=== PATIENT | male | born 1965 | race Caucasian/White ===

== ENCOUNTER → 2018-11-26 10:28 | Outpatient (CLI) | payer OTHER, SELFPAY ==
--- NOTE | 2018-11-26 | DI.RAD.S_ITS ---
PROCEDURE: XR CHEST 2V INDICATIONS: chest pain, cough TECHNIQUE: 2 views of the chest were acquired. COMPARISON: None. FINDINGS: Surgical changes and devices: None. Lungs and pleura: Lungs are clear. No pleural effusions or pneumothorax. Mediastinum: Mediastinal contours are normal. Heart size is normal. Bones and chest wall: No suspicious bony abnormalities. Soft tissues appear unremarkable. IMPRESSION: No acute cardiopulmonary pathology. Dictated by: Nico Yeung M.D. on 11/26/2018 at 11:49 Approved by: Nico Yeung M.D. on 11/26/2018 at 11:49
== END ==
PROVIDERS: Family Provider Nurse Practitioner Family; Visit Provider Family Medicine
DX: R07.9 Chest pain, unspecified (principal); R05 Cough
CPT/HCPCS: 71046

== ENCOUNTER → 2020-03-30 08:57 | Outpatient (CLI) | payer OTHER, SELFPAY ==
--- NOTE | 2020-03-30 | DI.MRI.S_ITS ---
PROCEDURE: MR LUMBAR SPINE WO CON INDICATIONS: Magnetic Resonance Imaging TECHNIQUE: Noncontrast sagittal T1 spin echo and T2 fast echo, sagittal STIR, axial T1 and T2 fast spin echo through the lumbar spine. In cases with scoliosis, additional coronal T2 fast spin echo may be performed. COMPARISON: [facility], MR, L-SPINE WITHOUT CONTRAST, 05/05/2006, 9:39. FINDINGS: Image quality: Excellent. Alignment and Curvature: There is normal bony alignment. Bone Marrow: Small benign intraosseous hemangioma noted in the L5 vertebral body. Minimal reactive endplate changes noted adjacent to the L5-S1 disc.. No acute vertebral body compression fractures. Spinal Cord: Tethered spinal cord is noted without visualization of the termination of the conus medullaris. Spinal cord terminates below the S1 level. Visualized cord demonstrates normal signal and size. Paraspinous Soft Tissues: No paravertebral masses. T12-L1: Normal appearance. L1-L2: Slight loss of disc signal. Minimal, diffuse disc bulge. No central stenosis. Mild bilateral neural foraminal narrowing. No neural compression. L2-L3: Loss of disc signal. Mild, diffuse disc bulge. Mild narrowing of the central canal. Mild bilateral neural foraminal narrowing. No neural compression. L3-L4: Loss of disc signal. Mild, diffuse disc bulge. Mild narrowing of the central canal. Mild bilateral neural foraminal narrowing. No neural compression. L4-L5: Loss of disc signal. Mild, diffuse disc bulge. Mild bilateral facet hypertrophy. Mild narrowing of the central canal. Mild to moderate bilateral neural foraminal narrowing. No neural compression. Fissure noted in the posterior annulus. L5-S1: Loss of disc signal. Mild, diffuse disc bulge. No central stenosis. Mild bilateral neural foraminal narrowing. No neural compression. IMPRESSION: 1. 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 Recommend neurosurgical consultation and dedicated sacral MRI with and without contrast for further evaluation. 2. Multilevel degenerative disc disease. 3. L4-L5 facet arthropathy. 4. No significant central canal narrowing. 5. No significant neural foraminal narrowing. 6. No neural compression. 7. L4-L5 disc annulus fissure. Dictated by: Geraldine Cooper MD, PhD on 03/30/2020 at 10:37 Approved by: Geraldine Cooper MD, PhD on 03/30/2020 at 10:44
== END ==
PROVIDERS: Family Provider Nurse Practitioner Family; PCP Family Medicine; Referring Provider Family Medicine; Visit Provider Family Medicine
DX: M54.5 Low back pain (principal); Q06.8 Other specified congenital malformations of spinal cord; M51.36 Other intervertebral disc degeneration, lumbar region; M51.37 Other intervertebral disc degeneration, lumbosacral region; M47.816 Spondylosis without myelopathy or radiculopathy, lumbar region
CPT/HCPCS: 72148

== ENCOUNTER → 2020-04-19 12:47 | Outpatient (CLI) | payer OTHER, SELFPAY ==
--- NOTE | 2020-04-19 | DI.RAD.S_ITS ---
PROCEDURE: XR CHEST 2V INDICATIONS: Chronic chest pain, unspecified TECHNIQUE: 2 views of the chest were acquired. COMPARISON: [facility], CR, XR CHEST 2V, 11/26/2018, 10:31. FINDINGS: Surgical changes and devices: None. Lungs and pleura: Lungs are clear. No pleural effusions or pneumothorax. Mediastinum: Mediastinal contours are normal. Heart size is normal. Bones and chest wall: No suspicious bony abnormalities. Soft tissues appear unremarkable. IMPRESSION: Normal for age, source of current chest pain symptoms is not seen. Dictated by: Velasquez Dewey M.D. on 04/19/2020 at 13:26 Approved by: Velasquez Dewey M.D. on 04/19/2020 at 13:26
== END ==
PROVIDERS: Family Provider Nurse Practitioner Family; PCP Family Medicine; Referring Provider Family Medicine; Visit Provider Family Medicine
DX: R07.9 Chest pain, unspecified (principal); G89.29 Other chronic pain
CPT/HCPCS: 71046

== ENCOUNTER 2020-04-28 10:41 | Emergency (ER) | payer OTHER, SELFPAY ==
[2020-04-28] VITALS (8 sets, daily range): BP systolic 150–199; BP diastolic 84–97; PULSE 55–72; RESP 13–29; TEMP 36.9; O2SAT 97–99
--- NOTE | 2020-04-28 10:56 | DI.RAD.S_ITS ---
PROCEDURE: XR CHEST 1V INDICATIONS: chest pain TECHNIQUE: One view of the chest was acquired. COMPARISON: [facility], CR, XR CHEST 2V, 11/26/2018, 10:31. [facility], CR, XR CHEST 2V, 04/19/2020, 12:49. FINDINGS: Surgical changes and devices: None. Lungs and pleura: Lungs are clear. No pleural effusions or pneumothorax. Mediastinum: Mediastinal contours appear normal. Heart size is normal. Bones and chest wall: No suspicious bony lesions. Overlying soft tissues appear unremarkable. IMPRESSION: Portable chest within normal limits. Dictated by: Dayne Gresham M.D. on 04/28/2020 at 10:21 Approved by: Dayne Gresham M.D. on 04/28/2020 at 10:22
[2020-04-28 11:39] LABS: Add Manual Diff / Slide Review NO; Basophils Absolute Auto 0 /uL (0-100); Basophils Percent Auto 0.3 % (0-2); Eosinophils Absolute Auto 0 /uL (0-450); Eosinophils Percent Auto 0.8 % (2-4); Hematocrit 43.9 % (41-53); Hemoglobin 15.1 g/dL (13.5-17.5); Lymphocytes Absolute Auto 1600 /uL (1100-4500); Lymphocytes Percent Auto 32.1 % (25-40); Mean Corpuscular HGB Conc 34.4 % (30-36); Mean Corpuscular Hemoglobin 30.5 PG (26-34); Mean Corpuscular Volume 88.7 fL (80-100); Monocytes Absolute Auto 500 /uL (0-900); Monocytes Percent Auto 9.9 % (3-14); Neutrophils Absolute Auto 2800 /uL (1500-7000); Neutrophils Percent Auto 56.9 % (50-75); Platelet Count 172 X10^3/uL (150-400); Red Blood Cell Count 4.95 X10^6/uL (4.5-5.9); Red Cell Distribution Width 13.1 % (11.6-14.8); White Blood Cell Count 4.9 X10^3/uL (4.5-11.0)
--- NOTE | 2020-04-28 11:39 | ED.CHESTPAIN ---
HPI - Chest Pain <ANTONIO Nascimento - Last Filed: 04/28/20 14:15> General Chief Complaint: Chest Pain Stated Complaint: chronic chest pain, worsening over past few months Time Seen by Provider: 04/28/20 11:02 Source: patient Mode of arrival: Ambulatory Limitations: no limitations History of Present Illness HPI narrative: This is a 54-year-old male, former smoker, who has past medical history significant for hypertension present to ED from [facility] with chronic left chest pain that has become more frequent and reports fatigue and less exercise intolerance for last 3 months. Patient reports initially noticed left-sided striking chest pain in 2018 with a new onset of HTN. Patient is a good historian and brought his past medical records with him and notes. He had started on anti hypertensive medication then developed side effect of post nasal drips and had changed the medication a few times. Since then patient has been having intermittent left-sided chest tightness and something/heaviness even at rest. He describes as mare horse that can't be stretched out. It has been progressively worse and most of the times he feels during dinner and through out the night. He rates pain as 3/10. When he wakes up in the morning and as day progresses, pain improves. Patient denies cough, wheezing, acid reflux. He denies associated symptoms as short of breath, dizziness. Patient reports he used to use elliptical machine for about 15 minutes a day and now he noticed after 10 minutes becomes tired. Patient denies increasing pain associated with increased activities. Patient had a stress test and echocardiogram done about 2 years ago at [facility] which was all normal. Patient states Dr. Cleary, PCP, found lipoma in the left side back and is waiting to schedule an US test and concerns if this is causing the pain. He didn't want to put off the pain longer and finds something more serious so he is here today. He has been using Aleve as his PCP recommended but no changes in pain. He denies pain changes with changing and in position. Patient denies abdominal or back pain. Patient denies rashes, calf pain, leg swelling. Related Data Home Medications Medication Instructions Recorded Confirmed losartan 25 - 50 mg PO DAILY 04/28/20 04/28/20 valacyclovir 500 mg PO BID 04/28/20 04/28/20 Allergies Allergy/AdvReac Type Severity Reaction Status Date / Time hornet venom Allergy Severe Anaphylaxis Verified 04/28/20 13:51 morphine AdvReac Intermediate Muscle Pain Verified 04/28/20 12:08 Review of Systems <ANTONIO Nascimento - Last Filed: 04/28/20 14:15> Review of Systems Narrative: General: Denies fever, chills, fatigue, malaise, sweats. HEENT: Denies sinus pain, ear pain, sore throat, difficulty swallowing, dizziness. Respiratory: Denies dyspnea, cough, wheezing, hemoptysis, sputum. Cardiovascular: See HPI Gastrointestinal: Denies nausea, vomiting, abdominal pain, diarrhea, constipation, melena. : Denies dysuria, frequency, incontinence, hematuria, urinary retention. Musculoskeletal: Denies weakness, joint pain or bony pain. Skin: Denies rash, skin lesions, or other. Neurologic: Denies weakness, headache, numbness, change in speech, confusion, seizures, incoordination. Psychiatric: No concerning psychosocial issues. 12-point review of systems is negative except for those stated above. Patient History <ANTONIO Nascimento - Last Filed: 04/28/20 14:15> Medical History History of tethered spinal cord Hypertension Social History Smoking Status: Former smoker Smoking Status: Former smoker alcohol intake frequency: 0-2 drinks per day Substance Use Type: does not use Exam <ANTONIO Nascimento - Last Filed: 04/28/20 14:15> Narrative Exam Narrative: GEN: Alert, oriented x 3, well appearing and nourished, and in no acute distress. Head: Normal cephalic, atraumatic. No scalp or temporal tenderness, palpable mass or rash. EYES: Pupils are equal, round, and reactive to light and accommodation. Extraocular muscles are intact bilaterally. There is no subconjunctival hemorrhage, exudate and sclera non-icteric. ENT: Hearing grossly intact. Airway patent. Neck: Trachea in midline. No JVD, non-tender without lymphadenopathy. No masses or thyroid megaly. Supple, non-tender and no meningeal signs. CARDIAC: Normal regular rate and rhythm without murmurs, gallops, or rubs. No chest wall tenderness. No peripheral edema, cyanosis or pallor. Capillary refill is less than 2 seconds. RESPIRATORY: Lungs are clear to auscultate bilaterally. No cough, wheezes, rales, or rhonchi. No stridor, respiratory distress, increase work of breathing, or accessary muscle used. ABD: Abdomen soft, nontender and non-distended. No guarding or rebound tenderness to palpate. Bowel sounds are normal in all 4 quadrants. There is no palpable masses or organomegaly. EXT: Full painless ROM of all extremities with no loss of sensation, strength, effusion or edema. SKIN: Warm, dry, normal color for patient. No erythema, lesions or rash over visible areas. BACK: Nontender without deformity or crepitance. No flank tenderness. NEUROLOGICAL: Alert and oriented to place, time and person. Sensation and motor function intact bilaterally. No facial droops, dysphasia. PSYCHIATRIC: Good judgement and reason, without hallucinations, abnormal affect or abnormal behaviors during the examination. Patient is not suicidal. Initial Vital Signs Initial Vital Signs: Vital Signs Temperature 98.5 F 04/28/20 10:45 Pulse Rate 72 04/28/20 10:45 Respiratory Rate 16 04/28/20 10:45 Blood Pressure 199/95 H 04/28/20 10:45 Pulse Oximetry 99 04/28/20 10:45 <Ventura Beltran DO - Last Filed: 04/28/20 14:16> Initial Vital Signs Initial Vital Signs: Vital Signs Temperature 98.5 F 04/28/20 10:45 Pulse Rate 72 04/28/20 10:45 Respiratory Rate 16 04/28/20 10:45 Blood Pressure 199/95 H 04/28/20 10:45 Pulse Oximetry 99 04/28/20 10:45 Scores <Jim ANTONIO Munoz - Last Filed: 04/28/20 14:15> GCS Samia coma scale eye opening: Spontaneous North coma scale verbal response: Orientated North coma scale motor response: Obey commands North coma scale total score: 15 HEART Score Heart Score history: Slightly Suspicious Heart Score EKG: Normal Heart Score Age: 45-64 years old Heart Score risk factors: 1-2 risk factors Heart Score troponin: < or = to normal limit Heart Score Total: 2 Course <[facility] - Last Filed: 04/28/20 14:15> Orders Ordered: ED Orders 04/28/20 10:56 XR chest 1V Stat EKG-12 Lead Stat 04/28/20 11:15 C-Reactive Protein Quant Stat Complete Blood Count AUTO DIFF Stat Comprehensive Metabolic Panel Stat Erythrocyte Sedimentation Rate Stat Lipase Stat Magnesium Stat Partial Thromboplastin Time Stat Prothrombin Time INR Stat Troponin & CK Cardiac Panel Stat 04/28/20 11:17 NT-proBNP (BNP-Adult 18+) Stat Discontinued Medications Ketorolac Tromethamine (Ketorolac 60 Mg/2 Ml Vial) 15 mg IV NOW ONE Stop: 04/28/20 12:04 Last Admin: 04/28/20 12:13 Dose: 15 mg Documented by: IRA Vital Signs Vital signs: Vital Signs - 8 hr 04/28/20 10:45 04/28/20 11:00 04/28/20 11:30 Temperature 98.5 F Pulse Rate 72 71 63 Respiratory Rate 16 29 H 13 Blood Pressure 199/95 H Pulse Oximetry 99 97 98 04/28/20 12:00 04/28/20 12:20 04/28/20 12:30 Temperature Pulse Rate 64 61 58 L Respiratory Rate 22 24 15 Blood Pressure 169/97 H 150/84 H Pulse Oximetry 98 98 98 04/28/20 13:00 04/28/20 13:30 Temperature Pulse Rate 55 L 55 L Respiratory Rate 13 16 Blood Pressure 160/87 H 150/84 H Pulse Oximetry 98 99 <Ventura Beltran DO - Last Filed: 04/28/20 14:16> Orders Ordered: ED Orders 04/28/20 10:56 XR chest 1V Stat EKG-12 Lead Stat 04/28/20 11:15 C-Reactive Protein Quant Stat Complete Blood Count AUTO DIFF Stat Comprehensive Metabolic Panel Stat Erythrocyte Sedimentation Rate Stat Lipase Stat Magnesium Stat Partial Thromboplastin Time Stat Prothrombin Time INR Stat Troponin & CK Cardiac Panel Stat 04/28/20 11:17 NT-proBNP (BNP-Adult 18+) Stat Discontinued Medications Ketorolac Tromethamine (Ketorolac 60 Mg/2 Ml Vial) 15 mg IV NOW ONE Stop: 04/28/20 12:04 Last Admin: 04/28/20 12:13 Dose: 15 mg Documented by: IRA Vital Signs Vital signs: Vital Signs - 8 hr 04/28/20 10:45 04/28/20 11:00 04/28/20 11:30 Temperature 98.5 F Pulse Rate 72 71 63 Respiratory Rate 16 29 H 13 Blood Pressure 199/95 H Pulse Oximetry 99 97 98 04/28/20 12:00 04/28/20 12:20 04/28/20 12:30 Temperature Pulse Rate 64 61 58 L Respiratory Rate 22 24 15 Blood Pressure 169/97 H 150/84 H Pulse Oximetry 98 98 98 04/28/20 13:00 04/28/20 13:30 Temperature Pulse Rate 55 L 55 L Respiratory Rate 13 16 Blood Pressure 160/87 H 150/84 H Pulse Oximetry 98 99 MDM - Chest Pain <Jim ANTONIO Munoz - Last Filed: 04/28/20 14:15> Differential Diagnosis Differential diagnosis: Likely unstable angina pectoris, atypical chest pain, st elevation myocardial infarction, costochondritis and other (Atypical chest pain, GERD) Medical Records Data Attestation: I reviewed the patient's medical records. Lab Data Attestation: I reviewed the patient's lab results. Result diagrams: 04/28/20 11:15 04/28/20 11:15 Labs: Lab Results 04/28/20 04/28/20 04/28/20 Range/Units 11:15 11:15 11:15 WBC 4.9 (4.5-11.0) X10^3/uL RBC 4.95 (4.5-5.9) X10^6/uL Hgb 15.1 (13.5-17.5) g/dL Hct 43.9 (41-53) % MCV 88.7 (80-100) fL MCH 30.5 (26-34) PG MCHC 34.4 (30-36) % RDW 13.1 (11.6-14.8) % Plt Count 172 (150-400) X10^3/uL Neut % (Auto) 56.9 (50-75) % Lymph % (Auto) 32.1 (25-40) % Wilcox % (Auto) 9.9 (3-14) % Eos % (Auto) 0.8 L (2-4) % Baso % (Auto) 0.3 (0-2) % Neut # (Auto) 2800 (2529-5756) /uL Lymph # (Auto) 1600 (2553-9403) /uL Wilcox # (Auto) 500 (0-900) /uL Eos # (Auto) 0 (0-450) /uL Baso # (Auto) 0 (0-100) /uL ESR 3 (0-15) MM/HR PT 11.7 (10.1-12.7) SECONDS INR 1.0 (0.9-1.3) APTT 33 (26.4-36.2) SECONDS Sodium 139 (137-145) mmol/L Potassium 4.1 (3.4-5.1) mmol/L Chloride 105 (98-107) mmol/L Carbon Dioxide 25 (22-32) mmol/L BUN 20 (9-20) mg/dL Creatinine 0.78 (0.66-1.25) mg/dL Estimated GFR > 60.0 (>60) mL/min BUN/Creatinine Ratio 25.6 H (6-22) Glucose 112 H (70-100) mg/dL Calcium 9.3 (8.4-10.2) mg/dL Magnesium 1.9 (1.6-2.3) mg/dL Total Bilirubin 0.4 (0.2-1.3) mg/dL AST 38 (17-59) IU/L ALT 30 (<50) IU/L Alkaline Phosphatase 55 (38-126) U/L Total Creatine Kinase 113 (55-170) U/L CK-MB (CK-2) 3.41 H (<2.37) ng/mL CK-MB (CK-2) Rel Index 3.0 (1.5-5.0) % Troponin I < 0.012 (0.01-0.034) ng/mL C-Reactive Protein < 0.5 (<1.0) mg/dL NT-Pro-B Natriuret Pep (<125) pg/mL Total Protein 7.5 (6.3-8.2) g/dL Albumin 4.3 (3.5-5.0) g/dL Globulin 3.2 (1.7-4.1) g/dL Albumin/Globulin Ratio 1.3 (1.0-2.8) Lipase 79 (23-300) U/L // Range/Units 11:17 WBC (4.5-11.0) X10^3/uL RBC (4.5-5.9) X10^6/uL Hgb (13.5-17.5) g/dL Hct (41-53) % MCV (80-100) fL MCH (26-34) PG MCHC (30-36) % RDW (11.6-14.8) % Plt Count (150-400) X10^3/uL Neut % (Auto) (50-75) % Lymph % (Auto) (25-40) % Wilcox % (Auto) (3-14) % Eos % (Auto) (2-4) % Baso % (Auto) (0-2) % Neut # (Auto) (2970-7387) /uL Lymph # (Auto) (2495-2946) /uL Wilcox # (Auto) (0-900) /uL Eos # (Auto) (0-450) /uL Baso # (Auto) (0-100) /uL ESR (0-15) MM/HR PT (10.1-12.7) SECONDS INR (0.9-1.3) APTT (26.4-36.2) SECONDS Sodium (137-145) mmol/L Potassium (3.4-5.1) mmol/L Chloride (98-107) mmol/L Carbon Dioxide (22-32) mmol/L BUN (9-20) mg/dL Creatinine (0.66-1.25) mg/dL Estimated GFR (>60) mL/min BUN/Creatinine Ratio (6-22) Glucose (70-100) mg/dL Calcium (8.4-10.2) mg/dL Magnesium (1.6-2.3) mg/dL Total Bilirubin (0.2-1.3) mg/dL AST (17-59) IU/L ALT (<50) IU/L Alkaline Phosphatase (38-126) U/L Total Creatine Kinase (55-170) U/L CK-MB (CK-2) (<2.37) ng/mL CK-MB (CK-2) Rel Index (1.5-5.0) % Troponin I (0.01-0.034) ng/mL C-Reactive Protein (<1.0) mg/dL NT-Pro-B Natriuret Pep 55 (<125) pg/mL Total Protein (6.3-8.2) g/dL Albumin (3.5-5.0) g/dL Globulin (1.7-4.1) g/dL Albumin/Globulin Ratio (1.0-2.8) Lipase (23-300) U/L Imaging Data Chest x-ray: Radiologist's Impression: [facility] [place] [id number] ReportSigned Patient: Lucio Arora R#: [id number]: 1965Acct:[id number]/Sex: 54 / MDate of Service: 04/28/20Loc: EDAccession Number: [id number] Procedure: XR chest 1V Ordering Provider: Ventura Beltran D.O. PROCEDURE: XR CHEST 1V INDICATIONS: chest pain TECHNIQUE: One view of the chest was acquired. COMPARISON: [facility], CR, XR CHEST 2V, 11/26/2018, 10:31. [facility], CR, XR CHEST 2V, 04/19/2020, 12:49. FINDINGS: Surgical changes and devices: None. Lungs and pleura: Lungs are clear. No pleural effusions or pneumothorax. Mediastinum: Mediastinal contours appear normal. Heart size is normal. Bones and chest wall: No suspicious bony lesions. Overlying soft tissues appear unremarkable. IMPRESSION: Portable chest within normal limits. Dictated by: Dayne Gresham M.D. on 04/28/2020 at 10:21 Approved by: Dayne Gresham M.D. on 04/28/2020 at 10:22 ECG Data Attestation: I personally reviewed and interpreted this ECG as follows: Prior ECG tracings: not available for review Interpretation: Normal sinus rhythm rate at 67. Normal [place]. [place] interval 170, QRS duration 84, QT/QTC 380/401. No acute ST changes MDM Narrative Medical decision making narrative: This is a 54-year-old male who presents to ED with chief complain of left-sided chest tightness, aches, pressure without other associated symptoms or aggravating or relieving factors since 2018. Patient had Cardiac workup including stress test and echocardiogram 2 years ago which were normal. Patient is here today for an evaluation since the pain is more frequent and experiences some fatigue last 3 months. EKG is normal sinus rhythm. Chest xray was negative for acute findings. Cardiac enzymes were negative for troponin. CK-MB was slightly elevated but CK-MB index was normal. Unremarkable chemistry test but mildly elevated BUN/Cr ration of 25.6 and glucose of 112. Normal lipase. Pro BNP was 55. Inflammatory marker was also checked to rule out pericarditis, endocarditis, myocarditis which were all normal was CRP of last than 0.5 with ESR of 3. Patient was medicated with IV Toradol without much changes. It is unclear the etiology of patient's chest pain. All questions were answered to the best of my knowledge and patient advised to follow with primary care physician and possible further cardiac workup. Return precautions discussed with the patient and he verbalized understanding and agreement with treatment plan. <Ventura Beltran, - Last Filed: 04/28/20 14:16> Lab Data Labs: Lab Results 04/28/20 04/28/20 04/28/20 Range/Units 11:15 11:15 11:15 WBC 4.9 (4.5-11.0) X10^3/uL RBC 4.95 (4.5-5.9) X10^6/uL Hgb 15.1 (13.5-17.5) g/dL Hct 43.9 (41-53) % MCV 88.7 (80-100) fL MCH 30.5 (26-34) PG MCHC 34.4 (30-36) % RDW 13.1 (11.6-14.8) % Plt Count 172 (150-400) X10^3/uL Neut % (Auto) 56.9 (50-75) % Lymph % (Auto) 32.1 (25-40) % Wilcox % (Auto) 9.9 (3-14) % Eos % (Auto) 0.8 L (2-4) % Baso % (Auto) 0.3 (0-2) % Neut # (Auto) 2800 (4904-3649) /uL Lymph # (Auto) 1600 (0564-7793) /uL Wilcox # (Auto) 500 (0-900) /uL Eos # (Auto) 0 (0-450) /uL Baso # (Auto) 0 (0-100) /uL ESR 3 (0-15) MM/HR PT 11.7 (10.1-12.7) SECONDS INR 1.0 (0.9-1.3) APTT 33 (26.4-36.2) SECONDS Sodium 139 (137-145) mmol/L Potassium 4.1 (3.4-5.1) mmol/L Chloride 105 (98-107) mmol/L Carbon Dioxide 25 (22-32) mmol/L BUN 20 (9-20) mg/dL Creatinine 0.78 (0.66-1.25) mg/dL Estimated GFR > 60.0 (>60) mL/min BUN/Creatinine Ratio 25.6 H (6-22) Glucose 112 H (70-100) mg/dL Calcium 9.3 (8.4-10.2) mg/dL Magnesium 1.9 (1.6-2.3) mg/dL Total Bilirubin 0.4 (0.2-1.3) mg/dL AST 38 (17-59) IU/L ALT 30 (<50) IU/L Alkaline Phosphatase 55 (38-126) U/L Total Creatine Kinase 113 (55-170) U/L CK-MB (CK-2) 3.41 H (<2.37) ng/mL CK-MB (CK-2) Rel Index 3.0 (1.5-5.0) % Troponin I < 0.012 (0.01-0.034) ng/mL C-Reactive Protein < 0.5 (<1.0) mg/dL NT-Pro-B Natriuret Pep (<125) pg/mL Total Protein 7.5 (6.3-8.2) g/dL Albumin 4.3 (3.5-5.0) g/dL Globulin 3.2 (1.7-4.1) g/dL Albumin/Globulin Ratio 1.3 (1.0-2.8) Lipase 79 (23-300) U/L 04/28/20 Range/Units 11:17 WBC (4.5-11.0) X10^3/uL RBC (4.5-5.9) X10^6/uL Hgb (13.5-17.5) g/dL Hct (41-53) % MCV (80-100) fL MCH (26-34) PG MCHC (30-36) % RDW (11.6-14.8) % Plt Count (150-400) X10^3/uL Neut % (Auto) (50-75) % Lymph % (Auto) (25-40) % Wilcox % (Auto) (3-14) % Eos % (Auto) (2-4) % Baso % (Auto) (0-2) % Neut # (Auto) (7531-7106) /uL Lymph # (Auto) (8257-3002) /uL Wilcox # (Auto) (0-900) /uL Eos # (Auto) (0-450) /uL Baso # (Auto) (0-100) /uL ESR (0-15) MM/HR PT (10.1-12.7) SECONDS INR (0.9-1.3) APTT (26.4-36.2) SECONDS Sodium (137-145) mmol/L Potassium (3.4-5.1) mmol/L Chloride (98-107) mmol/L Carbon Dioxide (22-32) mmol/L BUN (9-20) mg/dL Creatinine (0.66-1.25) mg/dL Estimated GFR (>60) mL/min BUN/Creatinine Ratio (6-22) Glucose (70-100) mg/dL Calcium (8.4-10.2) mg/dL Magnesium (1.6-2.3) mg/dL Total Bilirubin (0.2-1.3) mg/dL AST (17-59) IU/L ALT (<50) IU/L Alkaline Phosphatase (38-126) U/L Total Creatine Kinase (55-170) U/L CK-MB (CK-2) (<2.37) ng/mL CK-MB (CK-2) Rel Index (1.5-5.0) % Troponin I (0.01-0.034) ng/mL C-Reactive Protein (<1.0) mg/dL NT-Pro-B Natriuret Pep 55 (<125) pg/mL Total Protein (6.3-8.2) g/dL Albumin (3.5-5.0) g/dL Globulin (1.7-4.1) g/dL Albumin/Globulin Ratio (1.0-2.8) Lipase (23-300) U/L Discharge Plan Departure Patient Disposition: Home Clinical Impression: Atypical chest pain Instructions: DI for Atypical Chest Pain Activity Restrictions/Additional Instructions: You have been diagnosed with [atypical chest pain. Labs are assuring including CBC, CMP, cardiac enzymes, CRP, ESR, lipase. EKG is normal sinus rhythm. No acute findings in chest x-ray.]. What to do: *Take your medications as directed. *Follow up with your primary care provider in 2-3 days, call for an appointment. Let them know you were seen in the ED and that we asked you to be seen in follow up. *Return to ED if you have any new, worsening, or concerning symptoms, such as [worsening or different chest pain, short of breath, lightheadedness, cold sweats, nausea/vomiting, fever, rash on her chest, or any acute concerns]. Prescriptions: No Action valacyclovir 500 mg tablet 500 mg PO BID RF: 0 losartan 50 mg tablet 25 - 50 mg PO DAILY RF: 0 Referrals: Emelyn Mcclelland MD [Primary Care Provider] - <Ventura Beltran DO - Last Filed: 04/28/20 14:16> Cosign ED Attending Cosignature Attestation: Dr Beltran Co-Sign Statement: I was available for consultation during this patient's emergency department visit. This chart is signed by myself for administrative purposes only. I did not have direct contact with this patient during this visit. They were seen independently by the APC.
[2020-04-28 11:48] LABS: Prothrombin Time 11.7 SECONDS (10.1-12.7)
[2020-04-28 11:51] LABS: PTT Partial Thromboplastin Tim 33 SECONDS (26.4-36.2)
[2020-04-28 11:56] LABS: Alanine Aminotransferase 30 IU/L (<50); Albumin 4.3 g/dL (3.5-5.0); Albumin Globulin Ratio 1.3 (1.0-2.8); Alkaline Phosphatase 55 U/L (38-126); Aspartate Aminotransferase 38 IU/L (17-59); BUN Creatinine Ratio 25.6 (6-22); Bilirubin Total 0.4 mg/dL (0.2-1.3); Blood Urea Nitrogen 20 mg/dL (9-20); Calcium 9.3 mg/dL (8.4-10.2); Carbon Dioxide 25 mmol/L (22-32); Chloride 105 mmol/L (98-107); Creatine Kinase 113 U/L (55-170); Estimated Glomerular Filt Rate > 60.0 mL/min (>60); Globulin 3.2 g/dL (1.7-4.1); Glucose 112 mg/dL (70-100); Lipase 79 U/L (23-300); Magnesium 1.9 mg/dL (1.6-2.3); Potassium 4.1 mmol/L (3.4-5.1); Sodium 139 mmol/L (137-145); Total Protein 7.5 g/dL (6.3-8.2)
[2020-04-28 11:57] LABS: C-Reactive Protein Quant < 0.5 mg/dL (<1.0)
[2020-04-28 12:00] LABS: Erythrocyte Sedimentation Rate 3 MM/HR (0-15)
[2020-04-28 12:05] LABS: Troponin I < 0.012 ng/mL (0.01-0.034)
[2020-04-28 12:08] LABS: Creatine Kinase MB 3.41 ng/mL (<2.37); HEMOLYSIS 25 (0-50)
[2020-04-28] MEDS: KETOROLAC 60 MG/2 ML VIAL 15 MG IV (12:13)
[2020-04-28 12:26] LABS: NT-proBNP (BNP-Adult 18+) 55 pg/mL (<125)
== END 2020-04-28 13:56 | disposition home or self-care (01) ==
PROVIDERS: Emergency Medicine; Emergency Provider Nurse Practitioner Family; Family Provider Nurse Practitioner Family; PCP Family Medicine
DX: R07.89 Other chest pain (principal); I10 Essential (primary) hypertension
CPT/HCPCS: 36415; 71045; 80053; 82550; 82553; 83690; 83735; 83880; 84484; 85025; 85610; 85651; 85730; 86140; 93005; 96374; 99283; 99284; J1885

== ENCOUNTER → 2020-05-04 10:41 | Outpatient (CLI) | payer OTHER, SELFPAY ==
--- NOTE | 2020-05-04 10:44 | DI.US.S_ITS ---
PROCEDURE: US ABDOMEN LIMITED INDICATIONS: SOFT TISSUE MASS LEFT MID BACK TECHNIQUE: Real-time focused scanning was performed of the left posterior chest, with image documentation. COMPARISON: None. FINDINGS: On the given images, there is no visible mass or cyst in the dermal layer, subcutaneous tissues, or visible musculature. IMPRESSION: No sonographic abnormality detected on the given images. Dictated by: Maribel Sauer M.D. on 05/04/2020 at 13:15 Approved by: Maribel Sauer M.D. on 05/04/2020 at 13:17
== END ==
PROVIDERS: Family Provider Nurse Practitioner Family; PCP Family Medicine; Referring Provider Family Medicine; Visit Provider Family Medicine
DX: R22.2 Localized swelling, mass and lump, trunk (principal)
CPT/HCPCS: 76705

== ENCOUNTER → 2020-09-06 16:41 | Outpatient (CLI) | payer OTHER, SELFPAY ==
--- NOTE | 2020-09-06 | DI.CT.S_ITS ---
PROCEDURE: CT CHEST WO/W CON COMPARISON: CT, KIDNEY/ URETER/BLADDER, 05/12/2017, 9:16. [facility], CR, XR CHEST 1V, 04/28/2020, 11:07. INDICATIONS: CHEST PAIN FINDINGS: Image quality: Excellent. Lungs: A few small pulmonary nodules. For example: -Right upper lobe juxta fissural pulmonary nodule measuring 0.4 cm, (8/113). -Right middle lobe juxta minor fissure pulmonary nodule measuring 0.5 cm, (8/174). -Left lower lobe pulmonary nodule measuring 0.4 cm, (8/287). No acute airspace opacity. Central airways are clear. No pleural effusion. No pneumothorax. Mediastinum: No enlarged adenopathy. Thoracic aorta and pulmonary arteries are normal in caliber. No acute aortic syndrome. No central pulmonary embolism. Heart size is normal. No coronary artery calcifications seen. Chest wall: No fracture or suspicious osseous lesion. No compression fracture. No axillary or supraclavicular adenopathy. Right thyroid nodule measuring 1.4 cm, (7/6). Abdominal wall: No abnormality identified in the upper abdomen. IMPRESSION: 1. No abnormality identified to explain the patient's chest pain. No acute airspace opacity. No pleural effusion. No coronary artery calcifications demonstrated. 2. A few small pulmonary nodules. Largest measuring 0.5 cm in the right middle lobe. Consider follow-up CT chest in 12 months to demonstrate stability, especially if the patient has a history of smoking. 3. Right thyroid nodule measuring 1.4 cm. -Consider further characterization with thyroid ultrasound. Dictated by: Ihsan Morales M.D. on 09/07/2020 at 8:56 Approved by: Ihsan Morales M.D. on 09/07/2020 at 9:08
== END ==
PROVIDERS: Family Provider Nurse Practitioner Family; PCP Family Medicine; Referring Provider Family Medicine; Visit Provider Family Medicine
DX: R07.9 Chest pain, unspecified (principal); R91.8 Other nonspecific abnormal finding of lung field; E04.1 Nontoxic single thyroid nodule
CPT/HCPCS: 71270

== ENCOUNTER → 2021-02-08 10:37 | Outpatient (CLI) | payer OTHER, SELFPAY ==
--- NOTE | 2021-02-08 | DI.US.S_ITS ---
PROCEDURE: US THYROID INDICATIONS: NODULE TECHNIQUE: Real-time scanning was performed of the thyroid gland, with image documentation. COMPARISON: [facility], CT, CT CHEST WO/W CON, 09/06/2020, 17:24. FINDINGS: Right: Thyroid lobe measures 5.3 x 2.3 x 1.9 cm. Left: Thyroid lobe measures 4.6 x 1.9 x 1.5 cm, and is homogenous in echotexture. Isthmus: 4-5 mm thick. Nodule number: 1 Location: Right mid thyroid Size: 2 x 1.6 x 1.4 cm. Composition: Solid Echogenicity: Hypoechoic Shape: wider than tall. Margins: Smooth Echogenic foci: None. Total points: 4 ACR TI-RADS category: 4 IMPRESSION: A 2 cm nodule is confirmed within the right mid thyroid. By published criteria, fine-needle aspiration of this nodule is now recommended. ACR TI-RADS definitions and recommendations: TI-RADS 1 (benign): 0 points. FNA not needed. TI-RADS 2 (not suspicious): 2 points. FNA not needed. TI-RADS 3 (mildly suspicious): 3 points. * FNA if 2.5 cm or larger, follow up if 1.5 cm or larger (at 1, 3, and 5 years). TI-RADS 4 (moderately suspicious): 4-6 points. * FNA if 1.5 cm or larger, follow up if 1 cm or larger (at 1, 2, 3, and 5 years). TI-RADS 5 (highly suspicious): 7 points or more. * FNA if 1 cm or larger, follow up if 0.5 cm or larger (every year for 5 years). Dictated by: Dayne Gresham M.D. on 02/08/2021 at 10:48 Approved by: Dayne Gresham M.D. on 02/08/2021 at 10:49
== END ==
PROVIDERS: Family Provider Nurse Practitioner Family; PCP Family Medicine; Referring Provider Family Medicine; Visit Provider Family Medicine
DX: E04.1 Nontoxic single thyroid nodule (principal)
CPT/HCPCS: 76536

== ENCOUNTER → 2021-02-14 10:28 | Outpatient (CLI) | payer OTHER, SELFPAY ==
[2021-02-14 20:17] LABS: COVID19 - ORCAS (NP or Nasal) Negative (Negative)
== END ==
PROVIDERS: Family Provider Nurse Practitioner Family; PCP Family Medicine; Visit Provider Family Medicine
DX: Z20.822 Contact with and (suspected) exposure to COVID-19 (principal)
CPT/HCPCS: U0003

== ENCOUNTER → 2024-11-15 09:16 | Outpatient (CLI) | payer BC, SELFPAY ==
--- NOTE | 2024-11-15 09:32 | DI.RAD.S_ITS ---
PROCEDURE: XR CERVICAL SPINE 4V OR 5V INDICATIONS: NECK PAIN TECHNIQUE: 6 views of the cervical spine were acquired. COMPARISON: None. FINDINGS: Cervical spine curvature and alignment: Straightening lordotic curve suggests muscle spasm. Normal physiologic motion between flexion extension Bones: There are no osseous abnormalities. Disc spaces: Mild C5-6 C6-7 degenerative disc disease. Mild C2-3 through C7-T1 degenerative facet disease Facet degeneration Soft tissues: No soft tissue swelling, calcification or mass. IMPRESSION: Mild degeneration Dictated by: Rajinder Gonsalez M.D. on 11/15/2024 at 10:59 Approved by: Rajinder Gonsalez M.D. on 11/15/2024 at 11:00
== END ==
LOC: RAD 09:30
PROVIDERS: Family Provider Nurse Practitioner Family; PCP Family Medicine; Referring Provider Chiropractor; Visit Provider Chiropractor
DX: M50.322 Other cervical disc degeneration at C5-C6 level (principal); M47.812 Spondylosis without myelopathy or radiculopathy, cervical region
CPT/HCPCS: 72050